=== PATIENT | male | born 1930 | race Caucasian/White ===

== ENCOUNTER 2016-12-24 18:53 | Inpatient (IN) | payer OTHER ==
[~2016-12-24] VITALS: Ht 165.1 cm; Wt 65.1 kg
[2016-12-24 20:03] LABS: EOSINOPHIL (%) 0.1 % (0-5); HEMATOCRIT 37.3 % (38.0-50.0); IMMATURE GRANULOCYTE (%) 0.2 % (0.0-0.7); IMMATURE GRANULOCYTE COUNT 0.2 K/uL; LYMPHOCYTE COUNT 0.5 K/uL (1.0-2.8); MCH 30.7 PG (29.0-34.0); MCHC 33.5 G/DL (30.0-36.0); MCV 91.6 FL (86-99); MEAN PLAT.VOLUME 9.3 uM^3 (9.0-12.4); MONOCYTE (%) 7.6 % (3-12); NEUTROPHIL (%) 87.9 % (45-76); NEUTROPHIL COUNT 11.2 K/uL (1.8-6.4); PLATELET COUNT 196 K/uL (156-360); RBC DIS.WIDTH-SD 45.8 % (39-53); RED BLOOD COUNT 4.07 M/uL (4.00-5.50); WHITE BLOOD COUNT 12.8 K/uL (4.1-10.2)
[2016-12-24 20:15] LABS: CHLORIDE 101 mEq/L (99-109); POTASSIUM 4.1 mEq/L (3.7-5.4); SODIUM 142 mEq/L (136-147)
[2016-12-24 20:18] LABS: ANION GAP 7 MEQ/L (2-14); INTER. NORMALIZED RATIO 1.2; PROTHROMBIN TIME 11.9 (9.2-11.2)
[2016-12-24 20:20] LABS: GFR ESTIMATE (CALCULATED) > 59 mL/min/
[2016-12-24 20:27] LABS: GLUCOSE 163 mg/dL (70-99); TROP-I INTERPRETATION NEGATIVE; TROPONIN-I 0.02 ng/mL (0.0-0.30)
[2016-12-24 20:28] LABS: CK-MB 2.4 ng/mL (0.0-4.9)
[2016-12-24 20:31] LABS: UREA NITROGEN (BUN) 21 mg/dL (9-23)
[2016-12-24] MEDS ORDERED: METOPROLOL SUC200 MG PO (20:31)
[2016-12-24] MEDS ORDERED: FLOMAX0.4 MG PO (20:31)
[2016-12-24] MEDS ORDERED: CENTRUM SILVER1 EAC5 PO (20:32)
[2016-12-24] MEDS ORDERED: LO-DOSE ASPIRIN81 M2 PO (20:32)
[2016-12-24 20:33] LABS: CREATINE KINASE 78 IU/L (1-294); TOTAL CK 78 IU/L (1-294)
[2016-12-24 22:33] LABS: HEMATOCRIT 35.4 % (38.0-50.0); MCH 31.2 PG (29.0-34.0); MCHC 33.9 G/DL (30.0-36.0); MCV 91.9 FL (86-99); MEAN PLAT.VOLUME 9.5 uM^3 (9.0-12.4); PLATELET COUNT 197 K/uL (156-360); RBC DIS.WIDTH-CV 13.9 % (11.8-14.6); RBC DIS.WIDTH-SD 45.6 % (39-53); RED BLOOD COUNT 3.85 M/uL (4.00-5.50)
[2016-12-25 06:42] LABS: CHLORIDE 101 mEq/L (99-109); POTASSIUM 4.1 mEq/L (3.7-5.4); SODIUM 139 mEq/L (136-147)
[2016-12-25 06:43] LABS: GLUCOSE 130 mg/dL (70-99)
[2016-12-25 06:45] LABS: ANION GAP 7 MEQ/L (2-14)
[2016-12-25 06:47] LABS: GFR ESTIMATE (CALCULATED) > 59 mL/min/
[2016-12-25 06:48] LABS: UREA NITROGEN (BUN) 24 mg/dL (9-23)
[2016-12-25 14:34] VITALS: BP 118/58
[2016-12-25 16:44] VITALS: BP 137/63
[2016-12-25 21:30] VITALS: BP 131/64
[2016-12-25 23:37] VITALS: BP 156/58
[2016-12-26 04:01] VITALS: BP 108/53
[2016-12-26 05:37] LABS: EOSINOPHIL (%) 0 % (0-5); HEMATOCRIT 26.2 % (38.0-50.0); IMMATURE GRANULOCYTE (%) 0.3 % (0.0-0.7); LYMPHOCYTE COUNT 1.2 K/uL (1.0-2.8); MCH 31.1 PG (29.0-34.0); MCV 91.6 FL (86-99); MEAN PLAT.VOLUME 9.9 uM^3 (9.0-12.4); MONOCYTE (%) 12.1 % (3-12); MONOCYTE COUNT 1.4 K/uL (0-0.8); NEUTROPHIL (%) 77.3 % (45-76); NEUTROPHIL COUNT 8.7 K/uL (1.8-6.4); PLATELET COUNT 158 K/uL (156-360); RBC DIS.WIDTH-CV 14.5 % (11.8-14.6); RBC DIS.WIDTH-SD 48.6 % (39-53); RED BLOOD COUNT 2.86 M/uL (4.00-5.50); WHITE BLOOD COUNT 11.3 K/uL (4.1-10.2)
[2016-12-26 05:53] LABS: ANION GAP 4 MEQ/L (2-14); CHLORIDE 99 MEQ/L (99-109); GFR ESTIMATE (CALCULATED) > 59 mL/min/; GLUCOSE 118 mg/dL (70-99); POTASSIUM 4.2 MEQ/L (3.7-5.4); SAMPLE HEMOLYSIS CHECK 0; SAMPLE ICTERIC CHECK 0; SAMPLE LIPEMIA CHECK 0; SODIUM 136 MEQ/L (136-147); UREA NITROGEN (BUN) 23 mg/dL (9-23)
[2016-12-26 07:58] VITALS: BP 101/53
[2016-12-26 12:24] VITALS: BP 114/57
[2016-12-26 16:18] VITALS: BP 129/71
[2016-12-26 19:59] VITALS: BP 103/51
[2016-12-26 23:50] VITALS: BP 101/57
[2016-12-27 06:21] LABS: EOSINOPHIL (%) 0.1 % (0-5); HEMATOCRIT 23.9 % (38.0-50.0); IMMATURE GRANULOCYTE (%) 0.2 % (0.0-0.7); LYMPHOCYTE COUNT 0.9 K/uL (1.0-2.8); MCH 31.7 PG (29.0-34.0); MCHC 34.7 G/DL (30.0-36.0); MCV 91.2 FL (86-99); MEAN PLAT.VOLUME 10.4 uM^3 (9.0-12.4); MONOCYTE (%) 11.4 % (3-12); MONOCYTE COUNT 0.9 K/uL (0-0.8); NEUTROPHIL (%) 77.5 % (45-76); NEUTROPHIL COUNT 6.4 K/uL (1.8-6.4); PLATELET COUNT 153 K/uL (156-360); RBC DIS.WIDTH-CV 14.6 % (11.8-14.6); RBC DIS.WIDTH-SD 48.4 % (39-53); RED BLOOD COUNT 2.62 M/uL (4.00-5.50); WHITE BLOOD COUNT 8.3 K/uL (4.1-10.2)
[2016-12-27 06:46] LABS: ANION GAP 6 MEQ/L (2-14); CHLORIDE 99 MEQ/L (99-109); GFR ESTIMATE (CALCULATED) > 59 mL/min/; GLUCOSE 100 mg/dL (70-99); POTASSIUM 3.9 MEQ/L (3.7-5.4); SAMPLE HEMOLYSIS CHECK 0; SAMPLE ICTERIC CHECK 0; SAMPLE LIPEMIA CHECK 0; SODIUM 137 MEQ/L (136-147); UREA NITROGEN (BUN) 21 mg/dL (9-23)
[2016-12-27 09:04] VITALS: BP 107/67
[2016-12-27 16:47] VITALS: BP 116/60
[2016-12-28] VITALS: BP 117/57
[2016-12-28 04:57] LABS: EOSINOPHIL (%) 0 % (0-5); HEMATOCRIT 24.1 % (38.0-50.0); IMMATURE GRANULOCYTE (%) 0.1 % (0.0-0.7); IMMATURE GRANULOCYTE COUNT 0.1 K/uL; LYMPHOCYTE COUNT 0.9 K/uL (1.0-2.8); MCH 31.2 PG (29.0-34.0); MCHC 33.6 G/DL (30.0-36.0); MCV 92.7 FL (86-99); MEAN PLAT.VOLUME 10.1 uM^3 (9.0-12.4); MONOCYTE (%) 7.4 % (3-12); MONOCYTE COUNT 0.6 K/uL (0-0.8); NEUTROPHIL (%) 81.8 % (45-76); NEUTROPHIL COUNT 6.6 K/uL (1.8-6.4); PLATELET COUNT 192 K/uL (156-360); RBC DIS.WIDTH-CV 14.3 % (11.8-14.6); RBC DIS.WIDTH-SD 46.1 % (39-53); WHITE BLOOD COUNT 8.1 K/uL (4.1-10.2)
[2016-12-28 05:09] LABS: CHLORIDE 101 mEq/L (99-109); POTASSIUM 3.9 mEq/L (3.7-5.4); SODIUM 138 mEq/L (136-147)
[2016-12-28 05:10] LABS: GLUCOSE 107 mg/dL (70-99)
[2016-12-28 05:12] LABS: ANION GAP 5 MEQ/L (2-14)
[2016-12-28 05:14] LABS: GFR ESTIMATE (CALCULATED) > 59 mL/min/
[2016-12-28 05:15] LABS: UREA NITROGEN (BUN) 24 mg/dL (9-23)
[2016-12-28 08:23] VITALS: BP 135/64
[2016-12-28 17:39] VITALS: BP 145/70
[2016-12-28 23:45] VITALS: BP 159/77
[2016-12-29 05:07] LABS: EOSINOPHIL (%) 0.3 % (0-5); HEMATOCRIT 25.2 % (38.0-50.0); LYMPHOCYTE COUNT 0.7 K/uL (1.0-2.8); MCH 31.3 PG (29.0-34.0); MCHC 33.3 G/DL (30.0-36.0); MEAN PLAT.VOLUME 9.9 uM^3 (9.0-12.4); MONOCYTE (%) 7.1 % (3-12); MONOCYTE COUNT 0.4 K/uL (0-0.8); NEUTROPHIL (%) 80.3 % (45-76); NEUTROPHIL COUNT 4.8 K/uL (1.8-6.4); PLATELET COUNT 232 K/uL (156-360); RBC DIS.WIDTH-CV 14.7 % (11.8-14.6); RED BLOOD COUNT 2.68 M/uL (4.00-5.50)
[2016-12-29 05:12] LABS: CHLORIDE 102 mEq/L (99-109); POTASSIUM 3.8 mEq/L (3.7-5.4); SODIUM 139 mEq/L (136-147)
[2016-12-29 05:14] LABS: GLUCOSE 90 mg/dL (70-99)
[2016-12-29 05:16] LABS: ANION GAP 7 MEQ/L (2-14)
[2016-12-29 05:18] LABS: GFR ESTIMATE (CALCULATED) > 59 mL/min/
[2016-12-29 05:19] LABS: UREA NITROGEN (BUN) 19 mg/dL (9-23)
[2016-12-29 08:40] VITALS: BP 142/77
[2016-12-29 15:35] VITALS: BP 152/72
[2016-12-29 23:36] VITALS: BP 176/84
[2016-12-30 05:48] LABS: EOSINOPHIL (%) 0.2 % (0-5); HEMATOCRIT 28.2 % (38.0-50.0); IMMATURE GRANULOCYTE (%) 0.3 % (0.0-0.7); LYMPHOCYTE COUNT 0.8 K/uL (1.0-2.8); MCH 29.8 PG (29.0-34.0); MCHC 31.9 G/DL (30.0-36.0); MCV 93.4 FL (86-99); MEAN PLAT.VOLUME 9.5 uM^3 (9.0-12.4); MONOCYTE (%) 10.6 % (3-12); MONOCYTE COUNT 0.6 K/uL (0-0.8); NEUTROPHIL COUNT 4.4 K/uL (1.8-6.4); PLATELET COUNT 264 K/uL (156-360); RBC DIS.WIDTH-CV 15.1 % (11.8-14.6); RBC DIS.WIDTH-SD 51.6 % (39-53); RED BLOOD COUNT 3.02 M/uL (4.00-5.50); WHITE BLOOD COUNT 5.9 K/uL (4.1-10.2)
[2016-12-30 06:12] LABS: ANION GAP 11 MEQ/L (2-14); CHLORIDE 101 MEQ/L (99-109); GFR ESTIMATE (CALCULATED) > 59 mL/min/; GLUCOSE 83 mg/dL (70-99); POTASSIUM 3.7 MEQ/L (3.7-5.4); SAMPLE HEMOLYSIS CHECK 0; SAMPLE ICTERIC CHECK 0; SAMPLE LIPEMIA CHECK 0; SODIUM 142 MEQ/L (136-147); UREA NITROGEN (BUN) 20 mg/dL (9-23)
[2016-12-30 07:44] VITALS: BP 166/84
[2016-12-30 08:08] VITALS: BP 150/68
[2016-12-30] MEDS ORDERED: LOVENOX40 MG/0.4 SC (11:50)
[2016-12-30] MEDS ORDERED: DONEPEZIL HCL5 MG PO (11:50)
[2016-12-30] MEDS ORDERED: FERROUS SULFAT325 MG PO (11:50)
[2016-12-30] MEDS ORDERED: LOPRESSOR25 MG PO (11:51)
[2016-12-30] MEDS ORDERED: VITAMIN D-32000 UNI2 PO (11:51)
[2016-12-30] MEDS ORDERED: Tylenol Extra Streng PO (11:51)
[2016-12-30] MEDS ORDERED: ENDOCET 5-3251 EACH PO (11:52)
== END 2016-12-30 14:45 | DRG 481 ==
LOC: EME → EDBD 18:53 → EDOF 21:40 → 3EAST 21:40
PROVIDERS: Emergency Medicine; Family Medicine; Orthopaedic Surgery Sports Medicine
PROC: 0QS736Z Reposition Left Upper Femur with Intramedullary Internal Fixation Device, Percutaneous Approach (ICD-10-PCS; principal; 2016-12-25)
DX: S72.042A Displaced fracture of base of neck of left femur, initial encounter for closed fracture (principal); W01.198A Fall on same level from slipping, tripping and stumbling with subsequent striking against other object, initial encounter; Y92.009 Unspecified place in unspecified non-institutional (private) residence as the place of occurrence of the external cause; E46 Unspecified protein-calorie malnutrition; D64.9 Anemia, unspecified; I10 Essential (primary) hypertension; I25.10 Atherosclerotic heart disease of native coronary artery without angina pectoris; N40.0 Benign prostatic hyperplasia without lower urinary tract symptoms; J44.9 Chronic obstructive pulmonary disease, unspecified; M21.379 Foot drop, unspecified foot; I35.0 Nonrheumatic aortic (valve) stenosis; Z95.1 Presence of aortocoronary bypass graft; F03.90 Unspecified dementia, unspecified severity, without behavioral disturbance, psychotic disturbance, mood disturbance, and anxiety
CPT/HCPCS: 70450; 71010; 73501; 73502; 76000; 80048; 82550; 82553; 83880; 84484; 85014; 85018; 85025; 85027; 85610; 86850; 86900; 86901; 92610 GN; 93005; 93306; 94799; 99281; 99285; C1713; J0690; J1170; J1650; J2405; J3010

== ENCOUNTER 2017-06-04 09:15 | Inpatient (IN) | payer OTHER ==
[~2017-06-04] VITALS: Ht 160 cm; Wt 52.5 kg
[~2017-06-04 09:15] MED LIST: CENTRUM SILVER1 EAC5 PO; DONEPEZIL HCL5 MG PO; ENDOCET 5-3251 EACH PO; FERROUS SULFAT325 MG PO; FLOMAX0.4 MG PO; LO-DOSE ASPIRIN81 M2 PO; LOPRESSOR25 MG PO; LOVENOX40 MG/0.4 SC; METOPROLOL SUC200 MG PO; Tylenol Extra Streng PO; VITAMIN D-32000 UNI2 PO
[2017-06-04 10:54] LABS: EOSINOPHIL (%) 0.7 % (0-5); EOSINOPHIL COUNT 0.1 K/uL (0-0.3); IMMATURE GRANULOCYTE (%) 0.3 % (0.0-0.7); INSTRUMENT ABS NEUTROPHIL CT 10.2 K/uL; LYMPHOCYTE COUNT 0.9 K/uL (1.0-2.8); MCH 29.6 PG (29.0-34.0); MCHC 32.2 G/DL (30.0-36.0); MCV 91.8 FL (86-99); MEAN PLAT.VOLUME 9.3 uM^3 (9.0-12.4); MONOCYTE (%) 6.2 % (3-12); MONOCYTE COUNT 0.7 K/uL (0-0.8); NEUTROPHIL (%) 85.2 % (45-76); NEUTROPHIL COUNT 10.2 K/uL (1.8-6.4); PLATELET COUNT 216 K/uL (156-360); RBC DIS.WIDTH-CV 17.5 % (11.8-14.6); RBC DIS.WIDTH-SD 58.8 % (39-53); WHITE BLOOD COUNT 11.9 K/uL (4.1-10.2)
[2017-06-04 11:00] LABS: INTER. NORMALIZED RATIO 1.1; PROTHROMBIN TIME 11.8 SEC (10.2-12.9)
[2017-06-04 11:03] LABS: PTT 33.7 SEC (25-37)
[2017-06-04 11:21] LABS: CHLORIDE 100 mEq/L (99-109); SODIUM 141 mEq/L (136-147)
[2017-06-04 11:23] LABS: GLUCOSE 88 mg/dL (70-99)
[2017-06-04 11:24] LABS: ANION GAP 9 MEQ/L (2-14)
[2017-06-04 11:27] LABS: GFR ESTIMATE (CALCULATED) > 59 mL/min/
[2017-06-04 11:28] LABS: UREA NITROGEN (BUN) 15 mg/dL (9-23)
[2017-06-04 11:38] LABS: TROP-I INTERPRETATION NEGATIVE; TROPONIN-I < 0.01 ng/mL (0.0-0.30)
[2017-06-04] MEDS ORDERED: ALPRAZOLAM0.5 MG PO (11:47)
[2017-06-04] MEDS ORDERED: ASCORBIC ACID500 M3 PO (12:51)
[2017-06-04] MEDS ORDERED: ENDOCET 5-3251 EACH PO (12:52)
[2017-06-04] MEDS ORDERED: LOPRESSOR25 MG PO (13:28)
[2017-06-04 14:45] LABS: Estimated Average Glucose 114 mg/dL (70-123); HEMOGLOBIN A1c (GLYCOHEMOGLOB) 5.6 % HGB (Below 5.7)
[2017-06-04 15:16] LABS: HDL CHOLESTEROL 61 MG/DL (Desirable>=40); LDL CHOLESTEROL 79 mg/dL (Desirable<100); NON-HDL CHOLESTEROL 91 mg/dL (Desirable<160); TOTAL CHOLESTEROL 152 mg/dL (Desirable<200); TRIGLYCERIDES 58 MG/DL (Normal: <150)
[2017-06-04 16:17] VITALS: BP 148/80
[2017-06-04 19:53] VITALS: BP 165/87
[2017-06-04 23:48] VITALS: BP 170/92
[2017-06-05 03:33] VITALS: BP 170/76
[2017-06-05 06:25] LABS: HEMATOCRIT 40.5 % (38.0-50.0); MCH 29.4 PG (29.0-34.0); MCHC 32.3 G/DL (30.0-36.0); MCV 90.8 FL (86-99); MEAN PLAT.VOLUME 9.5 uM^3 (9.0-12.4); PLATELET COUNT 233 K/uL (156-360); RBC DIS.WIDTH-CV 17.4 % (11.8-14.6); RBC DIS.WIDTH-SD 58.3 % (39-53); RED BLOOD COUNT 4.46 M/uL (4.00-5.50); WHITE BLOOD COUNT 14.1 K/uL (4.1-10.2)
[2017-06-05 08:57] VITALS: BP 168/81
[2017-06-05 11:28] VITALS: BP 110/65
[2017-06-05 15:40] VITALS: BP 145/88
[2017-06-05 19:41] VITALS: BP 166/74
[2017-06-05 23:28] VITALS: BP 152/77
[2017-06-06 03:47] VITALS: BP 146/80
[2017-06-06 06:48] LABS: EOSINOPHIL (%) 0 % (0-5); HEMATOCRIT 38.6 % (38.0-50.0); IMMATURE GRANULOCYTE (%) 0.3 % (0.0-0.7); INSTRUMENT ABS NEUTROPHIL CT 9.6 K/uL; LYMPHOCYTE COUNT 1.3 K/uL (1.0-2.8); MCH 30.3 PG (29.0-34.0); MCHC 33.4 G/DL (30.0-36.0); MCV 90.6 FL (86-99); MEAN PLAT.VOLUME 10.4 uM^3 (9.0-12.4); MONOCYTE (%) 9.3 % (3-12); MONOCYTE COUNT 1.1 K/uL (0-0.8); NEUTROPHIL (%) 79.3 % (45-76); NEUTROPHIL COUNT 9.6 K/uL (1.8-6.4); PLATELET COUNT 226 K/uL (156-360); RBC DIS.WIDTH-CV 17.9 % (11.8-14.6); RBC DIS.WIDTH-SD 59.5 % (39-53); RED BLOOD COUNT 4.26 M/uL (4.00-5.50); WHITE BLOOD COUNT 12.1 K/uL (4.1-10.2)
[2017-06-06 07:12] LABS: ANION GAP 7 MEQ/L (2-14); CHLORIDE 101 MEQ/L (99-109); GFR ESTIMATE (CALCULATED) > 59 mL/min/; GLUCOSE 105 mg/dL (70-99); POTASSIUM 3.9 MEQ/L (3.7-5.4); SAMPLE HEMOLYSIS CHECK 0; SAMPLE ICTERIC CHECK 0; SAMPLE LIPEMIA CHECK 0; SODIUM 138 MEQ/L (136-147); UREA NITROGEN (BUN) 18 mg/dL (9-23)
[2017-06-06 08:09] VITALS: BP 163/78
[2017-06-06 12:16] VITALS: BP 133/75
[2017-06-06 16:17] VITALS: BP 168/72
[2017-06-06 19:38] VITALS: BP 130/70
[2017-06-06 23:49] VITALS: BP 133/70
[2017-06-07 03:43] VITALS: BP 116/65
[2017-06-07 07:46] VITALS: BP 114/64
[2017-06-07 11:04] VITALS: BP 125/69
[2017-06-07 15:10] VITALS: BP 158/72
[2017-06-08] VITALS: BP 152/56
[2017-06-08 08:22] VITALS: BP 150/81
[2017-06-08 15:56] VITALS: BP 152/80
[2017-06-08 23:51] VITALS: BP 153/79
[2017-06-09 06:27] LABS: EOSINOPHIL (%) 0 % (0-5); HEMATOCRIT 37.9 % (38.0-50.0); IMMATURE GRANULOCYTE (%) 0.4 % (0.0-0.7); INSTRUMENT ABS NEUTROPHIL CT 5.3 K/uL; MCH 30.8 PG (29.0-34.0); MCHC 32.7 G/DL (30.0-36.0); MEAN PLAT.VOLUME 10.7 uM^3 (9.0-12.4); MONOCYTE (%) 8.5 % (3-12); MONOCYTE COUNT 0.6 K/uL (0-0.8); NEUTROPHIL (%) 76.5 % (45-76); NEUTROPHIL COUNT 5.3 K/uL (1.8-6.4); PLATELET COUNT 224 K/uL (156-360); RBC DIS.WIDTH-CV 17.2 % (11.8-14.6); RBC DIS.WIDTH-SD 60.7 % (39-53); RED BLOOD COUNT 4.03 M/uL (4.00-5.50)
[2017-06-09 07:07] LABS: ANION GAP 6 MEQ/L (2-14); CHLORIDE 107 MEQ/L (99-109); GFR ESTIMATE (CALCULATED) > 59 mL/min/; GLUCOSE 144 mg/dL (70-99); SAMPLE HEMOLYSIS CHECK 0; SAMPLE ICTERIC CHECK 0; SAMPLE LIPEMIA CHECK 0; UREA NITROGEN (BUN) 27 mg/dL (9-23)
[2017-06-09 07:21] LABS: SODIUM 146 MEQ/L (136-147)
[2017-06-09 07:45] VITALS: BP 157/88
[2017-06-09] MEDS ORDERED: CLOPIDOGREL75 MG PO (12:57)
[2017-06-09] MEDS ORDERED: LOVENOX40 MG/0.4 SC (12:57)
[2017-06-09] MEDS ORDERED: ALPRAZOLAM0.5 MG PO (12:58)
[2017-06-09] MEDS ORDERED: ENDOCET 5-3251 EACH PO (12:58)
== END 2017-06-09 16:21 | DRG 69 ==
LOC: EME → EDBD 09:15 → EME 09:15 → EDOF 12:52 → 5SOUTH 12:52 → ENRESERV 12:53 → 5SOUTH 15:17
PROVIDERS: Emergency Medicine; Family Medicine
DX: G45.9 Transient cerebral ischemic attack, unspecified (principal); G81.94 Hemiplegia, unspecified affecting left nondominant side; F03.90 Unspecified dementia, unspecified severity, without behavioral disturbance, psychotic disturbance, mood disturbance, and anxiety; I11.0 Hypertensive heart disease with heart failure; I25.10 Atherosclerotic heart disease of native coronary artery without angina pectoris; R47.02 Dysphasia; S72.002A Fracture of unspecified part of neck of left femur, initial encounter for closed fracture; Z51.5 Encounter for palliative care; R13.10 Dysphagia, unspecified; J98.11 Atelectasis; I50.9 Heart failure, unspecified; I35.0 Nonrheumatic aortic (valve) stenosis; Z66 Do not resuscitate; D64.9 Anemia, unspecified; M19.90 Unspecified osteoarthritis, unspecified site; F41.9 Anxiety disorder, unspecified; Z95.1 Presence of aortocoronary bypass graft; Z79.02 Long term (current) use of antithrombotics/antiplatelets; Z79.82 Long term (current) use of aspirin
CPT/HCPCS: 70450; 70551; 71010; 73080; 74230; 80048; 80061; 83036; 84484; 85025; 85027; 85610; 85730; 92610 GN; 92611 GN; 93005; 93880; 94799; 97530 GP; 99281; 99285; J1650